=== PATIENT | female | born 1965 | race American Indian/Alaskan Native ===

== ENCOUNTER 2017-10-27 08:02 | Outpatient (CLI) | payer OTHER ==
[2017-10-27] MEDS ORDERED: SILVER NITRATE TP ONE ×2 (08:37→08:40)
== END 2017-10-27 08:03 | disposition home or self-care (01) ==
LOC: WOUND 08:02
PROVIDERS: ATTEND Surgery
DX: L02.413 Cutaneous abscess of right upper limb (principal)
CPT/HCPCS: 11042; G0463; 17250

== ENCOUNTER 2017-11-03 13:06 | Outpatient (CLI) | payer OTHER | END 2017-11-03 13:07 | disposition home or self-care (01) | LOC: WOUND 13:06 | PROVIDERS: ATTEND Surgery | DX: L02.413 Cutaneous abscess of right upper limb (principal) | CPT/HCPCS: 99211; G0463 ==